=== PATIENT | male | born 1955 | race Caucasian/White ===

== ENCOUNTER 2025-03-21 18:30 | Emergency (ER) | payer OTHER, SELFPAY ==
[2025-03-21 18:34] VITALS: BP 192/89
[2025-03-21 19:03] LABS: Hematocrit 43.0 % (39.0-52.0); Hemoglobin 14.6 g/dL (13.0-18.0); Mean Corp Hgb Conc. 34.0 g/dL (33.0-37.0); Mean Corpuscular Volume 80.2 fL (80.0-94.0); Nucleated Red Blood Cells % 0 % (-); Platelet Count 194 10^3/uL (130-400); Red Cell Dist. Width 12.7 % (11.5-14.5)
[2025-03-21 19:22] LABS: ALT (SGPT) 14 U/L (0-50); AST (SGOT) 18 U/L (17-59); Albumin 4.4 g/dl (3.5-5.0); Alkaline Phosphatase 68 U/L (38-126); Blood Urea Nitrogen 15 mg/dl (9-20); Calcium 9.1 mg/dl (8.4-10.2); Carbon Dioxide 25 mmol/L (22-30); Chloride 103 mmol/L (98-107); Glucose 98 mg/dl (70-99); Lipase 43 U/L (23-300); Potassium 3.7 mmol/L (3.5-5.1); Sodium 135 mmol/L (135-145); Total Protein 7.3 g/dl (6.3-8.2); eGFR > 60.00
[2025-03-21 19:33] LABS: Troponin I 0.015 ng/ml
[2025-03-21 20:09] VITALS: BP 124/107
--- NOTE | 2025-03-21 20:34 | ED.GENMED ---
History of Present Illness
General
Chief Complaint: Heart Rate Problem
Time Seen by Provider: 03/21/25 20:01
Nursing documentation reviewed up to this point in time: agreed with
History of Present Illness
History of Present Illness:
69-year-old male presents to the ER via EMS for evaluation of palpitations which started at 6:00 this evening. Patient states that he has not eaten much today although he has been eating a lot over the previous few days due to the holiday. He was
resting when he started to feel palpitations which he describes as a skipping feeling in his chest. He has experienced this in the past but has never had it lasts more than a few minutes. He states it lasted for about 2 hours prior to him alerting
his son who checked his blood pressure and found it to be significantly elevated-200 systolic. Patient denies any feeling of chest pain. He denies any nausea vomiting or diarrhea. No fevers or chills. No shortness of breath. He has no prior
personal history of ACS. He does states that he did have a evaluation with a print graphic designer back home (he is visiting from [facility] and participates in the [facility] medical system). 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
to his pulmonary arteries but did not require any surgical intervention. He also states that he had some scarring in his left lower lobe and has followed with a endoscopy technican at home. He does take metoprolol daily, no recent change in his dosing.
He also sees pain management and is prescribed 50 mg oxy IR 4 times daily-he states that he does not like to take this medication and has not experienced an abrupt change in his dosing. He denies any peripheral edema
Review of Systems
Review of Systems
Allergies reviewed?: Yes
Phy Exam
Physical Exam
Physical Exam:
Patient is awake, alert, appears in no acute distress, head is NCAT, PERRL, EOMI mucous membranes moist, conjunctiva pink, heart regular rate and rhythm without murmurs or ectopy, lungs are clear to auscultation without wheezes rales or rhonchi, no
JVD, abdomen is soft and nontender on palpation, extremities without edema, 2+ DP pulses present symmetric bilateral lower extremities, GCS is 15
Course
Orders/Labs/Results
Orders:
Orders
03/21/25 18:40
EKG [Electrocardiogram (*1)] Urgent
Reason for Study: Palpitations
EKG- Treatment ONCE
03/21/25 18:56
Complete Blood Count/With Diff Urgent
Comprehensive Metabolic Panel Urgent
Lipase Urgent
Magnesium Urgent
Troponin I Urgent
03/21/25 20:33
Add On- LAB Urgent
Tests Added?: magnesium
Electrocardiogram (*1) Urgent
Reason for Study: Palpitations
EKG- Treatment ONCE
CR Chest - 2 Views Urgent
Comment:
Reason For Exam: chest pain
03/21/25 21:59
Mag Hydrox/Al Hydrox/Simeth [Maalox] 30 ml Phenobarb/Hyoscy/Atropine/Scop [] 10 ml PO NOW
03/21/25 22:01
Troponin I Urgent
03/21/25 22:05
Mag Hydrox/Al Hydrox/Simeth [Maalox] 30 ml .ROUTE .STK-MED ONE
Phenobarb/Hyoscy/Atropine/Scop [] 10 ml .ROUTE .STK-MED ONE
Abnormal Lab Results
03/21/25
18:56
Lymphocytes % 19.8 L %
(20.5-51.1)
03/21/25 18:56
03/21/25 18:56
Labs are very reassuring, normal CBC, normal chemistries. Troponin just above negative at 0.015. No prior values for comparison
Vital Signs
Initial and Last Documented VS:
Initial Vital Signs
Temp Pulse Resp BP Pulse Ox
98.1 F 54 18 192/89 99
03/21/25 18:34 03/21/25 18:34 03/21/25 18:34 03/21/25 18:34 03/21/25 18:34
Last Documented Vital Signs
Temp Pulse Resp BP Pulse Ox
98.1 F 57 16 162/77 96
03/21/25 18:34 03/21/25 23:45 03/21/25 23:45 03/21/25 23:00 03/21/25 21:30
MDM/Problems Addressed
Differential Diagnosis Includes:
Differential diagnosis considered but not limited to electrolyte dyscrasia, hypertensive urgency, arrhythmia, along with other etiologies considered
Chronic conditions affecting care:
Chronic pain, hypertension, age greater than 50
*Pulse Oximetry
SaO2: 98
Oxygen Mode of Delivery: Room air
Patient hypoxic: no
*EKG
Interpreted by ED Provider?: Yes (I independently viewed and interpreted twelve-lead EKG showing sinus bradycardia, rate 56, normal axis, incomplete right bundle branch block, no ST elevation, baseline artifact present, this is a nonspecific EKG
without evidence for acute ischemia)
*Clinical Director Interpretation
Rate: bradycardiac (I independently viewed and interpreted rhythm strip showing normal sinus rhythm, bradycardia, no ectopy)
*Critical Care Note
Total Time (30-74mins, 75-104mins- exclusive of procedures): Not Applicable
Update Note
Update Note:
I discussed with patient very reassuring workup so far. No ectopy noted on the monitor. Blood pressure improved significantly spontaneously without intervention. Patient and son present bedside agree with plan for repeated troponin and EKG. They
have no questions at the current time
2158: Repeat EKG without any change compared to prior, no evidence for acute ischemia. I reviewed radiology interpretation of chest x-ray-right basilar opacity likely related to prior scarring that patient is already aware of. Awaiting repeated
troponin.
I discussed with patient and son present at bedside very reassuring repeated troponin. No evidence for acute ischemia. I discussed with them all test results including scarring on chest x-ray, patient confirms that this had been seen on the right
side of his chest. I discussed with patient need for follow-up with his print graphic designer-he states that he is in process of transitioning care and will reach out to his family physician to have appointment for reevaluation this week. Patient is
planning on [place]. He expressed understanding of full discharge instructions and felt comfortable with plan. While we were reviewing discharge plan he had a PVC on the monitor which he did
complain of discomfort during the PVC. I discussed with him benign etiology of PVC, however he would benefit from follow-up with his print graphic designer. Patient expressed understanding of discharge plan. Neither he nor his son had any questions prior
to leave the department.
ED Attending Note
-
Portions of this chart may have been created with voice recognition software.� Occasional wrong word or��sound alike� substitutions may have occurred due to the inherent limitations of voice recognition software.
Discharge Plan
Departure
Patient Disposition: Home (Routine Discharge)
Date of Disposition: 03/21/25
Time of Disposition: 23:45
Patient with high blood pressure during this ER visit?: Yes
Discharge Problem:
Heart palpitations, Symptomatic PVCs
Instructions: Palpitations (DC), BLOOD PRESSURE
Referrals:
Lakhwinder Michael MD [Family Provider, Internal Medicine]
Activity Restrictions/Additional Instructions:
Please contact your primary care physician in the morning to schedule appointment for reevaluation this week. Please also contact your print graphic designer to schedule appointment for reevaluation when you return home. Return to the ER for any concerns.
Continue your current medications.
Interventions
Interventions:
*Risk Screen - Suicide Last Done: 03/21/25 18:34
*General Assessment Last Done: 03/21/25 18:34
*Neglect/Abuse Screening Last Done: 03/22/25 00:09
*ED- Fall Risk Assessment Last Done: 03/22/25 00:09
*ED COVID-19 Vaccine History Last Done: 03/21/25 18:34
*ED Influenza Vaccine History Last Done: 03/21/25 18:34
*Nursing Disposition Last Done: 03/22/25 00:09
ED- Cardiac Assessment Last Done: 03/21/25 20:11
ED- Pulmonary Assessment Last Done: 03/21/25 20:11
Discharge Date and Time
Discharge Date/Time: 03/22/25 00:09
Print Language: CHADIAN
[2025-03-21 21:00] VITALS: BP 144/78
[2025-03-21 21:08] LABS: Magnesium 1.8 mg/dl (1.6-2.3)
[2025-03-21] MEDS: MAALOX 10 PO (22:06)
[2025-03-21 22:14] VITALS: BP 161/82
[2025-03-21 22:46] LABS: Troponin I 0.016 ng/ml
[2025-03-21 23:00] VITALS: BP 162/77
== END 2025-03-22 00:09 | disposition home or self-care (01) ==
LOC: EMR 18:30
PROVIDERS: Emergency Medicine; EMERGENCY PHYSICIAN Emergency Medicine; OTHER PHYSICIAN Internal Medicine Cardiovascular Disease
DX: R00.2 Palpitations (principal); I49.3 Ventricular premature depolarization; I10 Essential (primary) hypertension; Z79.899 Other long term (current) drug therapy
CPT/HCPCS: 99283; 71046; 80053; 83690; 83735; 84484; 85025; 93005